=== PATIENT | female | born 1950 | race Caucasian/White ===

== ENCOUNTER 2019-08-30 08:25 | Observation (INO) ==
[2019-08-30] MEDS ORDERED: SALINE LOCK IV FLUID XX ONE (11:49)
[2019-08-30] MEDS ORDERED: TYLENOL PO PRN (11:51)
[2019-08-30] MEDS ORDERED: DULCOLAX PR PRN (11:51)
[2019-08-30] MEDS ORDERED: ZOFRAN IV PRN (11:51)
[2019-08-30] MEDS ORDERED: COLACE PO PRN (11:51)
[2019-08-30] MEDS ORDERED: DESYREL PO PRN (11:51)
[2019-08-30] MEDS ORDERED: ZOFRAN ODT PO PRN (11:54)
[2019-08-30] MEDS ORDERED: LOVENOX SUBQ SCH (12:00)
--- NOTE | 2019-08-30 12:52 | HISTORY AND PHYSICAL ---
ATTENDING PHYSICIAN: Dr. Manuel Conner. ADMITTING PHYSICIAN: Dr. Manuel Conner. CHIEF COMPLAINT: Fatigue and acute abdominal pain. HISTORY OF PRESENT ILLNESS: Ms. Martínez is a pleasant, 69-year-old patient of mine who carries a past medical history of COPD, diverticular disease, hypertension, mesenteric atherosclerosis, dyslipidemia, iron deficiency, hypothyroidism, postmenopausal osteoporosis, diabetes, elevated white blood cell count, and a recent evaluation in the emergency room of right- sided nephrolithiasis. She presents for evaluation, stating that she continues to have abdominal pain and was concerned that this might be related to her thyroid dose having recently been changed to the full. However, upon further review, the thyroid dose is appropriate and her thyroid functions are normal. She has multiple awakenings in the evening with regards to urination and continues to have right posterior flank pain and right anterior abdominal pain. In mid July, she went to the emergency room and was found to have a kidney stone and a urinary tract infection. However, the urine culture results were noted to be negative. On today's exam, she is noted to have acute tenderness in the right upper quadrant as well as the lower quadrant, raising concern for persistence of nonspecific intra-abdominal pathology. She is admitted to the internal medicine service based on abdominal pain, elevated white blood cell count, history of nephrolithiasis more than 4 weeks ago, and a concern for acute urinary stone retention and/or acute on chronic cholecystitis. ALLERGIES: Penicillin resulting in chest pain and shortness of breath; cortisone resulting in body pain; Neosporin resulting in rash; steroids resulting in headache; Singulair resulting in crazy; lisinopril resulting in crazy; Plavix resulting in increased anxiety. MEDICATIONS ON ADMISSION: Aspirin 81 mg once daily, metoprolol 25 mg b.i.d., Protonix 40 mg once daily, vitamin D supplement 2000 international units once daily, Advair 250/50 one puff b.i.d., Glucophage 500 b.i.d., Synthroid 112 mcg once daily, and Lipitor 40 mg once daily. FAMILY HISTORY: Father secondary to suicide and alcohol, in his early 60s. Mother at 74. Cause of , congestive heart failure. Brother in his 50s due to what she describes as perhaps a ruptured ventricle. Brother 62. Cause of , alcoholism and overdose. Sister 79 with coronary artery disease and history of blood clots. Sister in her 60s due to aneurysmal disease. Brother in his 60s due to nonalcoholic cirrhosis. Sister in her 60s, overdose. Sister 67 with rheumatoid seizure, diabetes. Sister 58 with mitral valve disorder and thyroid disorder. Sister 24, due to leukemia. She comes from a large family, 11 children in all. She has 10 siblings, 4 living, all of them are girls. SOCIAL HISTORY: The patient is with 2 biologic and 2 stepchildren. She has 7 grandchildren and 1 great-great grandchild. She has been for 27 years as of 2019, second time around. in 1992. She has a remote history of tobacco 12-1/2 pack years, quitting in 1999. She has a regular/occasional drink of wine. Travel history is unremarkable. PAST SURGICAL HISTORY: Tonsillectomy at age 7, right leg tendon repair in the 80s, right toe fracture in the fall of 2017, lumpectomy in 2010, cataract implants in 2018. No surgery since 2019. Patient's last annual wellness visit noted to be May of 2017. Patient having been new to the clinic in January of 2019. ADDITIONAL STUDIES OF INTEREST: A CT scan of the abdomen and pelvis demonstrating fatty liver, peripheral vascular disease, right-sided renal cyst, paraaortic lymph nodes, and diverticular disease. CT scan of the thorax in 2018 consistent with emphysema. Colonoscopy as recently as November of 2018 with 3 polyps but no evidence of diverticular disease. Recent CT scan of the abdomen and pelvis in mid July showing nephrolithiasis involving the distal right-sided ureter as well as biliary sludge with questionable stones seen in the gallbladder. PHYSICAL EXAMINATION: VITAL SIGNS: Blood pressure 125/68, pulse at 85, saturating 84% on room air, temperature at 97.7 degrees, weight at 184 pounds, with a BMI at 38.5. GENERAL: Patient is alert and oriented x3 without any cognitive deficiencies. HEENT: Normocephalic, atraumatic. Pupils are equal and reactive to light and accommodation. NECK: Soft and supple without lymphadenopathy or bruits. CARDIOVASCULAR: Regular rate and rhythm without murmurs, gallops, or rubs. LUNGS: Clear. ABDOMEN: Protuberant, with tenderness in the right upper quadrant and right lower quadrant, more so the right upper than the right lower quadrant. There is guarding but no rebound or rigidity. EXTREMITIES: Benign, without clubbing, cyanosis, or edema. NEUROLOGIC: Cranial nerves 2-12 are grossly intact. Patient is alert and oriented x3 without any cognitive deficiencies. White blood cell count is noted to be elevated greater than 11,000, this despite being on oral antibiotics and continuing to have nonspecific abdominal pain complicated by generalized fatigue. IMPRESSION: A 69-year-old with abdominal pain localizing in the right upper and right lower quadrant, this within the context of recent kidney stone and with ongoing elevated white blood cell count, patient is admitted to the internal medicine service for CT scan of the abdomen and pelvis with special attention paid to the right upper quadrant and right lower quadrant, re- evaluation with labs, and possible urological and general surgical consultation. We will be holding the metformin on admission secondary to a CT scan which is anticipated. Further diagnostic therapy and clinical recommendations to follow once the CT scan imaging has been obtained and labs are available for review. The patient and the understand the course of treatment and plan. No further issues at this time. Note is dictated on the morning of admission. cc: DO CINTIA Carmona
[2019-08-30 15:08] LABS: BASO# 0.03 X1000 (0.0-0.2); BASO% 0.3 % (0.0-0.8); EOS# 0.23 X1000 (0.0-0.7); EOS% 2.3 % (0.0-10.0); HEMATOCRIT 42.4 % (37.0-47.0); HEMOGLOBIN 13.5 g/dL (12.0-16.0); IMM GRAN# 0.02 X1000 (0.0-0.04); IMM GRAN% 0.2 % (0.0-0.5); LYMPH# 2.14 X1000 (1.2-3.4); LYMPH% 21.7 % (20.5-51.1); MCH 29.5 PG (27-31); MCHC 31.8 g/dL (33-37); MCV 92.6 FL (81-99); MONO# 1.26 X1000 (0.11-0.59); MONO% 12.8 % (1.7-9.3); MPV 11.9 FL (7.4-10.4); NEUT# 6.18 X1000 (1.4-6.5); NEUT% 62.7 % (42.2-75.2); PLT 159 X1000 (130-400); RBC 4.58 XMIL (4.2-5.4); RDW 15.2 % (11.5-14.5); WBC 9.86 X1000 (4.8-10.8)
[2019-08-30 15:25] LABS: INR 0.99; PROTIME 13.2 Seconds (11.0-16.0)
[2019-08-30 15:29] LABS: URINE SOURCE CLEAN CATCH
[2019-08-30 15:33] LABS: BILIRUBIN URINE NEGATIVE (NEGATIVE); BLOOD URINE NEGATIVE (NEGATIVE); COLOR YELLOW; GLUCOSE URINE NEGATIVE (NEGATIVE); KETONE URINE NEGATIVE (NEGATIVE); LEUKOCYTES URINE NEGATIVE (NEGATIVE); NITRITE URINE NEGATIVE (NEGATIVE); PROTEIN URINE NEGATIVE (NEGATIVE); SP GRAVITY URINE 1.019; TURBIDITY URINE CLEAR (CLEAR); UROBILINOGEN URINE NORMAL (NORMAL)
[2019-08-30 15:34] LABS: UR EPITHELIAL CELLS <10 /HPF (<10); URINE BACTERIA NEGATIVE /HPF; URINE RBC <10 /HPF (<10); URINE WBC <10 /HPF (<10)
[2019-08-30 15:47] LABS: AGAP 14; ALB/GLOB RATIO 1.3; ALBUMIN 3.9 g/dL (3.5-5.0); ALKALINE PHOSPHATASE 76 U/L (32-104); AMYLASE 47 U/L (20-200); BUN 10 mg/dL (8-22); CALCIUM 9.5 mg/dL (8.8-10.2); CHLORIDE 104 mmol/L (98-107); COSMO 286; CREATININE 0.5 mg/dL (0.5-0.9); ESTIMATED GFR > 60; GLUCOSE 135 mg/dL (70-104); GOT 22 U/L (10-30); GPT 14 U/L (10-36); LIPASE 26 U/L (13-60); POTASSIUM 3.9 mmol/L (3.5-5.1); SODIUM 143 mmol/L (136-145); TCO2 25 mmol/L (25-35); TOTAL BILIRUBIN 0.45 mg/dL (0.20-1.00)
--- NOTE | 2019-08-30 16:24 | Diag Imaging Result Doc PS360 ---
CT ABDOMEN/PELVIS W/WO CONTRAS - 08/30/2019 INDICATION: RUQ pain and RLQ pain COMPARISON: 07/24/2019 FINDINGS: The lung bases are clear and the heart size is normal. No radiodense renal stones. No hydronephrosis or hydroureter. Abdominal organs all appear normal. No bowel obstruction or inflammation. Urinary bladder, uterus, and rectum are normal. Stable benign right renal cysts. No acute fractures. IMPRESSION: No acute disease. This exam was performed using automated exposure control, adjustment of mA or kV according to patient size, and/or use of iterative reconstruction technique Electronically signed by Tony Woods 08/30/2019 4:21 PM
[2019-08-30] MEDS: ADVAIR 250/50 DISKUS INH SCH ×2 (18:56→20:10)
[2019-08-30] MEDS: NS 1,000 ML IV SCH (18:56)
[2019-08-30] MEDS: LOPRESSOR PO SCH (23:31)
[2019-08-31] MEDS: NS 1,000 ML IV SCH (04:33)
[2019-08-31] MEDS ORDERED: SYNTHROID PO SCH ×2 (07:00)
[2019-08-31 08:25] VITALS: BP 159/65
[2019-08-31] MEDS ORDERED: FLOMAX PO SCH (09:00)
--- NOTE | 2019-08-31 09:01 | Diag Imaging Result Doc PS360 ---
EXAM: US GB < RUQ (LIMITED) INDICATION: RUQ pain COMPARISON: 11/30/2017 FINDINGS: The gallbladder appears normal with no stones, wall thickening, or pericholecystic fluid. The common bile duct is normal in diameter. Sonographic Barraza's sign was reported to be negative. The liver is grossly unremarkable. Portal venous flow is hepatopetal. The visualized pancreas is unremarkable. The proximal and distal aorta are obscured by bowel gas. The mid aorta is unremarkable. The right kidney is grossly unremarkable. IMPRESSION: Essentially unremarkable right upper quadrant abdominal ultrasound. Electronically signed by Mike Taveras 08/31/2019 8:59 AM
[2019-08-31] MEDS: LOPRESSOR PO SCH (09:09)
[2019-08-31] MEDS: ADVAIR 250/50 DISKUS INH SCH (09:59)
[2019-08-31] MEDS ORDERED: LIPITOR PO SCH (21:00)
== END 2019-08-31 11:16 | disposition home or self-care (01) ==
LOC: INTOOBSV 08:25 → EDIPHOLD 08:25 → DIRADM 08:28 → 4N 13:12
PROVIDERS: ADMIT Internal Medicine; ATTEND Internal Medicine